=== PATIENT | female | born 1980 | race Caucasian/White ===

== ENCOUNTER 2019-03-11 06:26 | Observation (INO) ==
--- NOTE | 2019-03-04 15:48 | PAT Medication Instructions ---
Medication Instructions Date of Service March 04, 2019 Home Medications levothyroxine 100 mcg PO QAM levonorgestrel-ethinyl estrad [Aviane] 1 tab PO QAM ASK your surgeon for instructions levonorgestrel-ethinyl estrad [Aviane] 1 tab PO QAM Take morning of surgery With a small sip of water, OTHERWISE NOTHING TO EAT OR DRINK AFTER MIDNIGHT: levothyroxine 100 mcg PO QAM Other Notes If you have any questions please call us at [phone] or [phone] or [phone] or [phone]
--- NOTE | 2019-03-05 12:05 | Anesthesiology Consultation ---
Date of Service March 05, 2019 Assessment & Plan (1) Encounter for pre-operative examination: Check test AM DOS Chart Review Chart Review: Acceptable Risk for Surgery and Patient seen in Pre Admission Testing Teaching & Discussion Pre-Anesthesia Teaching/Discussion Notes: Instructed NPO after midnight before surgery,except medications with 15 cc of water. Medication instructions provided according to the PAT guidelines. History Surgery Operation Date: 03/11/19 07:30 Proposed Procedures p Bilateral Reduction Mammoplasty - Mary Shine MD Height/Weight Height: 5 ft 6 in Weight: 66.2 kg Allergies Allergy/AdvReac Type Severity Reaction Status Date / Time No Known Allergies Allergy Verified 02/25/19 13:23 Medications Home Medications Medication Instructions Recorded Confirmed Last Taken levothyroxine 100 mcg PO QAM 08/25/18 02/25/19 01/30/19 Past Medical History Medical History History of thyroid cancer S/P RADIATION THERAPY, SURGERY Hx of endometriosis Hypothyroidism Migraine Exercise / Class Metabolic Activity II 4-5 Yardwork/Stairs/Walk up hill Past Family History Family History Mother Family history of diabetes mellitus Grandmother (Maternal) Family hx of colon cancer Past Surgical History Surgical History H/O exploratory laparotomy Robotic diagnostic ex-lap: 10/03/18: Grade view 2, MAC#3, ET 7.5 at [facility] History of arthroscopy RT KNEE - MENISCUS REPAIR History of colonoscopy History of loop electrical excision procedure (LEEP) History of thyroidectomy TOTAL THYROIDECTOMY History of tooth extraction Past Anesthesia History No Family Hx of Anesthesia Complications and Other Patient states her told her she was "slow to wake" with most recent caruso rgery (diagnostic lap at [facility] 09/2018) but she states she was not aware of this/no provider told her this. History of PONV History of PONV Social History Smoking Status: Former smoker tobacco type: cigarettes Do You Dip or Chew Tobacco: No Smoking End Date: QUIT 2014 Hx Alcohol Use: Yes Alcohol type: hard liquor alcohol intake frequency: holidays/special occasions only Hx Substance Use: No substance use type: does not use Review of Systems Patient denies chest pain, shortness of breath, dyspnea on exertion, reflux, cough, wheezing, palpitations. Physical Exam Vital Signs VITALS BP 146/89 P 75 TEMP 98.5 SP02 95%RA RESP 18 Patient advised to followup with PCP regarding elevated BP. PHYSICAL Full neck and c-spine range of motion. Full TMJ range of motion. TMD 2.5 finger breaths Mallampati Score 2 Dentition: intact Lungs: clear throughout to auscultation Cardiac: regular rate and rhythm, I/ systolic murmur Spine: normal Carotid arteries: negative bruit Extremities: no edema Testing Laboratory Results 03/11/19 07:30 03/11/19 07:30 PT Cancelled 03/11/19 07:30 INR Cancelled 03/11/19 07:30 APTT Cancelled 03/11/19 07:30 03/05/19 WBC 7.76 H/H 13.6/38.9 PLATELETS 254 SODIUM 138 POTASSIUM 3.6 CHLORIDE 104 CO2 29 BUN 11 CREATININE 0.83 GLUCOSE 77 PT 10.6 PTT 29.0 INR 1.0
[2019-03-05 12:49] LABS: Basophils # (auto) 0.04 K/uL (0-0.2); Basophils % (auto) 0.5 %; Eosinophils # (auto) 0.11 K/uL (0-0.5); Eosinophils % (auto) 1.4 %; Hematocrit (blood only) 38.9 % (37-47); Hemoglobin 13.6 g/dL (12.0-16.0); Immature Granulocytes # (auto) 0.01 K/uL (0.00-0.02); Immature Granulocytes % (auto) 0.1 %; Lymphocytes # (auto) 1.82 K/uL (1.2-3.4); Lymphocytes % (auto) 23.5 %; Mean Platelet Volume 10.8 fL (7.4-10.4); Monocytes # (auto) 0.46 K/uL (0.11-0.59); Monocytes % (auto) 5.9 %; Neutrophils # (auto) 5.32 K/uL (1.4-6.5); Neutrophils % (auto) 68.6 %; Platelet Count 254 K/uL (130-400); RDW Coefficient of Variation 12.7 % (11.5-14.5); RDW Standard Deviation 37.3 fL (36.4-46.3); White Blood Count 7.76 K/uL (4.8-10.8)
[2019-03-05 13:05] LABS: Partial Thromboplastin Ratio 1.1; Prothrombin Time 10.6 Seconds (9.0-12.0)
[2019-03-05 14:33] LABS: BUN Creatinine Ratio 13.1 (10-20); Calcium 8.8 mg/dl (8.5-10.1); Creatinine Clr Calc Pharmacy 86.9 ml/min; Est GFR (African American) 104.4; Est GFR (Non-African American) 90.1; Potassium 3.6 mmol/L (3.5-5.1)
[~2019-03-11 06:26] MED LIST: CEFAZOLIN 2000MG 2,000 MG/15 ML SYR IV SCH; LR 15ML/HR IV SCH
--- NOTE | 2019-03-11 06:48 | History & Physical Bridge Note ---
Date of Service March 11, 2019 History & Physical Bridge Note I have examined the patient, reviewed the History & Physical and in the interval since the performance of the History & Physical I have noted the following changes of clinical significance: no changes noted
[2019-03-11] MEDS ORDERED: ONDANSETRON INJ 2 MG/ML 2 ML VIAL IV PRN ×2 (06:53→12:35)
[2019-03-11] MEDS ORDERED: fentaNYL citrate 100 MCG/2 ML VIAL IV PRN (06:53)
[2019-03-11] MEDS ORDERED: ATROPINE SULFATE 0.1 MG/ML 10ML SYR IV PRN (06:53)
[2019-03-11] MEDS ORDERED: ePHEDrine sulfate 50 MG/ML AMP IV PRN (06:53)
[2019-03-11] MEDS ORDERED: HYDROmorphone INJ 1 MG/ML SYRINGE IV PRN (06:53)
[2019-03-11] MEDS ORDERED: HYDROmorphone INJ 2 MG/ML SYR/VIAL ONE (06:57)
[2019-03-11] MEDS ORDERED: MIDAZOLAM HCL 1 MG/ML 2ML VIAL ONE (06:57)
[2019-03-11] MEDS ORDERED: fentaNYL citrate 100 MCG/2 ML VIAL ONE (06:57)
[2019-03-11] MEDS ORDERED: SCOPOLAMINE 1.5 MG TDSY ONE (06:59)
[2019-03-11] MEDS ORDERED: LIDOCAINE HCL 1% 20 ML VIAL ONE (07:01)
[2019-03-11] MEDS ORDERED: BUPIVACAINE 0.25% 30 ML VIAL ONE (07:01)
[2019-03-11] MEDS ORDERED: LIDOCAINE/EPINEPHRINE 1% 20 ML VIAL ONE (07:01)
[2019-03-11] MEDS ORDERED: EpINEphrine HCL INJ 1 MG/ML 1ML SYRINGE ONE (07:02)
[2019-03-11] MEDS ORDERED: LIDOCAINE 2% JELLY 5 ML TUBE ONE (07:03)
[2019-03-11] MEDS ORDERED: SCOPOLAMINE 1.5 MG TDSY TD ONE (07:08)
[2019-03-11] MEDS ORDERED: NEOSTIGMINE METHYLSULFATE 5 MG/5 ML SYR ONE (07:44)
[2019-03-11] MEDS ORDERED: METOCLOPRAMIDE HCL INJ 5 MG/ML 2 ML VIAL ONE (07:44)
[2019-03-11] MEDS ORDERED: ROCURONIUM BROMIDE 10 MG/ML 5 ML VIAL ONE (07:44)
[2019-03-11] MEDS ORDERED: ONDANSETRON INJ 2 MG/ML 2 ML VIAL ONE (07:44)
[2019-03-11] MEDS ORDERED: LIDOCAINE HCL 2% 2 ML VIAL/AMP(20MG/ML) INFIL ONE (07:44)
[2019-03-11] MEDS ORDERED: PROPOFOL IV EMULSION 10 MG/ML 20 ML VIAL IV ONE (07:44)
[2019-03-11] MEDS ORDERED: GLYCOPYRROLATE 0.2 MG/ML VIAL ONE (07:44)
--- NOTE | 2019-03-11 11:13 | Post Operative Brief Note ---
Immediate Post Op Note v1 Date of Surgery March 11, 2019 Pre & Post Diagnosis Operation Date: 03/11/19 07:30 Pre-Op Diagnosis: Symptomatic Macromastia Post-Op Diagnosis: Symptomatic Macromastia Procedure Operation Date: 03/11/19 07:30 Actual Procedures p Bilateral Reduction Mammoplasty(Bilateral) - Mary hSine MD Surgeon Mary Shine MD Lead Machinist Vanna Zuniga PA-C, Esther Mendoza PA-C Estimated Blood Loss 50 Findings Consistent with Post-Op Diagnosis Drains Momo-Guerrero Drain (Left and Right breast)
--- NOTE | 2019-03-11 11:41 | Operative Report ---
Post Operative Report Pre & Post Diagnosis Operation Date: 03/11/19 07:30 Pre-Op Diagnosis: Symptomatic Macromastia Post-Op Diagnosis: Symptomatic Macromastia Procedure Operation Date: 03/11/19 07:30 Actual Procedures p Bilateral Reduction Mammoplasty(Bilateral) - Mary Shine MD Surgeon Mary Sihne MD Examining Officer Vanna Zuniga PA-C, Esther Mendoza PA-C Estimated Blood Loss 50 Findings Consistent with Post-Op Diagnosis Specimens Breast tissue left 440 g, right 472 g Drains ERIKA x2 Anesthesia Type General Complications none Description of Procedure The risks, benefits, and alternatives of the procedure were explained to the patient who agreed and signed consent. She was identified and marked in the preoperative holding area. She was brought to the operating room where she was positioned supine and placed under general anesthesia without incident. Surgical site was prepped and draped sterilely. A time-out procedure was performed. I began with the left side. Markings were reassessed and a 7 cm pedicle was marked. 1% lidocaine with epinephrine was used to anesthetize the planned incisions. A 42 mm cookie cutter was used to circumscribe the nipple-areolar complex. The previously marked 7 cm pedicle was incised using a 15 blade scalpel and deepithelized. I began with the medial dissection of the pedicle using electrocautery. Cautery was used to incise through dermis and breast parenchyma down to the chest wall, taking care not to undermine the pedicle during dissection. A similar procedure was undertaken on the lateral aspect of the pedicle again taking care not to undermine. Lastly, the pedicle was dissected out superiorly using electrocautery and this was carried down to the chest wall as well. I then began with excision of the medial breast tissue followed by lateral aspect of the breast tissue and surrounding keyhole incision. A 15 blade scalpel was used to make the inframammary fold incision and electrocautery was used to deepen the incision through dermis and breast parenchyma. Dissection was then carried superiorly to the level of the superior incision. Superior incision was then incised using a 15 blade scalpel and again dissected using electrocautery. This was undertaken laterally and then around the keyhole portion of the incision. Care was taken to leave some fat on the lateral pectoralis fascia in order to protect the T4 intercostal nerve. Hemostasis was achieved with electrocautery. The specimen was passed off in its entirety for weighing. Additional resection was undertaken from the superior flap in order to facilitate closure of the breast and to provide the best shape. The total resection weight of the left breast was 440 grams. The wound was irrigated with saline and hemostasis was achieved with electrocautery. 0.25% Marcaine plain was used to anesthetize the incisions as well as the pectoralis fascia. A 15 [place] drain was brought out through a separate stab incision. The nipple-areolar complex was brought into the keyhole using 2-0 Vicryl deep dermal suture. The wound was closed first in a lateral to mid breast direction and then medial to mid breast direction using 2-0 Vicryl deep dermal sutures. Vertical limb was also approximated using 2-0 Vicryl deep dermals and the nipple-areolar complex was inset using 2-0 Vicryl deep dermal sutures. Next, the superficial dermal layer was closed using 2-0 PDO running Quill suture along the inframammary fold and 3-0 PDS interrupted dermal sutures along the vertical limb and nipple- areolar complex. Lastly 3-0 Monocryl running subcuticular suture was placed. A similar procedure was undertaken on the right side with maximal excision weight of 472 grams. Breasts were symmetric and nipple-areolar complexes were viable bilaterally following wound closure. Dermabond Prineo was applied along the inframammary fold and vertical limb and Dermabond was placed around the nipple-areolar complex. Dry dressings and a surgical bra were placed. The patient was awakened and transferred to recovery room in satisfactory condition. Vanna Zuniga PA-C was present and scrubbed throughout the procedure and was instrumental in providing retraction during dissection of the pedicle and assisting in wound closure. I attest to the content of the Intraoperative Record and any orders documented therein. Any exceptions are noted below.
--- NOTE | 2019-03-11 11:59 | Anesthesiology Progress Note ---
Date of Service March 11, 2019 Anesthesia Post Procedure Vital Signs Vital Signs: Temp Pulse Resp BP Pulse Ox 03/11/19 11:50 97.9 F 90 16 142/84 H 99 03/11/19 11:40 97.9 F 83 19 137/80 100 03/11/19 11:30 97.9 F 88 11 L 148/88 H 100 03/11/19 11:24 97.9 F 84 14 156/90 H 99 03/11/19 06:45 98.6 F 71 18 170/95 H 98 Transfer of Care Handoff Completed per policy Notes Mental Status: alert / awake / arousable and participated in evaluation Patient Amnestic to Procedure: Yes Nausea / Vomiting: adequately controlled Pain: adequately controlled Airway Patency, RR, SpO2: stable & adequate BP & HR: stable & adequate Hydration State: stable & adequate Anesthetic Complications: no major complications apparent and Pt Satisfied with anesthetic care
[2019-03-11] MEDS ORDERED: OXAZEPAM 10 MG CAPSULE PO PRN (12:35)
[2019-03-11] MEDS ORDERED: OXYCODONE/ACETAMINOPHEN 5mg/325mg TAB PO PRN ×2 (12:35)
[2019-03-11] MEDS ORDERED: MoRPHine SULFATE 2 MG/ML CARP IV PRN (12:35)
[2019-03-11] MEDS ORDERED: ACETAMINOPHEN 325 MG TAB PO PRN (12:35)
[2019-03-11] MEDS ORDERED: PROMETHAZINE HCL 12.5 MG in SODIUM CHLORIDE 0.9% 50 ML IV PRN (12:35)
[2019-03-11] MEDS ORDERED: MoRPHine SULFATE 4 MG/ML 1 ML CARP\\VIAL IV PRN ×2 (12:35)
[2019-03-11] MEDS ORDERED: DiphenhydrAMINE HCL 50 MG/ML VIAL IV PRN (12:35)
[2019-03-11] MEDS: CHECK SCOPOLAMINE PATCH PLACEMENT SCH (15:34)
[2019-03-11] MEDS: CEFAZOLIN 2000MG 2,000 MG/15 ML SYR IV SCH (15:36)
[2019-03-11] MEDS: D5W AND 1/2NSS + 20MEQ KCL 20 MEQ/1,000 ML BAG IV SCH (18:16)
--- NOTE | 2019-03-11 19:11 | Surgery Progress Note ---
Date of Service March 11, 2019 Assessment & Plan (1) Macromastia: Doing well continued observation overnight with NAC checks Subjective s/p bilateral breast reduction reports some pain, tolerable oob to void Physical Exam Physical Exam: bilateral breasts without hematomas, NACs pink, viable, sensate bilaterally, good cap refill JPs serosanguinous Results & Data Vital Signs (Past 12 Hours) Vital Signs Temp Pulse Resp BP Pulse Ox 03/11/19 19:06 36.8 C 90 18 126/80 95 03/11/19 15:21 36.5 C 80 14 144/80 H 96 03/11/19 14:20 36.6 C 69 16 137/80 95 03/11/19 13:20 73 16 147/80 H 97 03/11/19 13:09 77 16 150/88 H 98 03/11/19 12:20 36.6 C 75 14 161/95 H 98 03/11/19 12:00 36.6 C 90 16 150/86 H 99 03/11/19 11:50 36.6 C 90 16 142/84 H 99 03/11/19 11:40 36.6 C 83 19 137/80 100 03/11/19 11:30 36.6 C 88 11 L 148/88 H 100 03/11/19 11:24 36.6 C 84 14 156/90 H 99
[2019-03-12] MEDS: CHECK SCOPOLAMINE PATCH PLACEMENT SCH ×2 (00:13→09:12)
[2019-03-12] MEDS: CEFAZOLIN 2000MG 2,000 MG/15 ML SYR IV SCH (00:13)
[2019-03-12] MEDS: D5W AND 1/2NSS + 20MEQ KCL 20 MEQ/1,000 ML BAG IV SCH (06:15)
[2019-03-12] MEDS ORDERED: LEVOTHYROXINE SODIUM 100 MCG TABLET PO SCH (06:30)
--- NOTE | 2019-03-12 08:19 | Surgery Progress Note ---
Date of Service March 12, 2019 Assessment & Plan (1) Macromastia: s/p bilateral breast reduction 1. doing well POD# 1. Drains removed. D/C home today and follow-up in office tomorrow Present on Admission?: Yes Subjective Patient resting comfortably. Reports minimal pain. Physical Exam Constitutional: WD/WN, vitals as above well developed and well nourished; no acute distress Skin: + incision (CDI, nipples viable, drains with minimal bloody and serous output) Results & Data Vital Signs (Past 12 Hours) Vital Signs Temp Pulse Resp BP Pulse Ox 03/12/19 07:09 36.6 C 79 16 129/75 96 03/12/19 02:20 36.7 C 72 14 128/78 97 03/11/19 23:07 37.0 C 83 16 125/79 97
[2019-03-12] MEDS ORDERED: MULTIVITAMIN TAB PO SCH (09:00)
--- NOTE | 2019-03-12 10:32 | Discharge Summary ---
Date of Service March 12, 2019 Admission HPI Per Admitting Provider see admission H&P Admission Exam Per Admitting Provider see admission H&P Principal Diagnosis symptomatic breast hypertrophy Discharge Exam Constitutional WD/WN, vitals as above well developed and well nourished; no acute distress Skin + incision (CDI, nipples viable, drains with minimal bloody and serous output) Discharge Data Allergies Allergy/AdvReac Type Severity Reaction Status Date / Time No Known Allergies Allergy Verified 03/11/19 06:43 Procedures Performed Operation Date: 03/11/19 07:30 Actual Procedures p Bilateral Reduction Mammoplasty(Bilateral) - Mary Shine MD Hospital Course (1) Macromastia: Patient presented to [facility] with history of symptomatic macromastia. She was taken to the OR and underwent bilateral breast reduction. There were no intraoperative complications. She was taken to recovery and transferred to med/surg for observation. On POD#1, she was feeling well. She was tolerating a r egular diet and ambulating. On exam, her vitals were stable. Her incisions were CDI and nipples viable. Her drains were removed. She was discharged home with instructions to follow-up in the office in one day. Total Time Total Time Spent Total Time Spent (In Minutes): 10 Total Time Includes: Examination of the Patient and Discharge Planning Discharge Plan Discharge Items Patient Disposition: Home - Self-Care Reason For Visit: Symptomatic Macromastia Discharge Diagnosis: s/p bilateral breast reduction Discharge Goals: Decrease discomfort Activity: As commented below Non-emergency contact: Surgeon Call non-emergency contact if: you have any medication questions, your pain is not controlled, you have a fever, your wound has increased redness and your wound has increased drainage Follow-up/Referrals: Zack Marion, [Primary Care Provider] - Diet: Regular Addtl Provider Instructions: ACTIVITY RECOMMENDATIONS: __Normal activities _x_No bending, lifting or straining __No driving __Driving allowed when you are off pain medications _x_Walking permitted __You should have help at home for ___ days DRESSINGS: __No dressings required _x_Keep dressings dry/in place until first office visit __Remove dressings ___ and leave dressings off __Apply ice ___ days __Remove dressings and reapply garment __Apply antibiotic ointment (Bacitracin, Neosporin, etc) to wounds 3-4 times/day for 10 days BATHING: _x_Keep dressings dry _x_Sponge bathing permitted __Showering permitted x__No swimming, hot tubs or soaking in a tub MEDICATIONS: Resume previous medications unless instructed otherwise by your surgeon. _x_Do not use aspirin, Motrin, Advil or Ibuprofen as these may promote bleeding. Please use Tylenol. _x_Prescription(s) provided: pain medication provided at your last office visit OTHER INSTRUCTIONS: __Record drain output 2-3 times per day SPECIAL CARE INSTRUCTIONS: * It is normal to have a mild fever after surgery. If your temperature is higher than 101.5 degrees F, please call the office at [phone]. * Constipation is a typical side effect of pain medication. An ywnz-fji-cwewees stool softener will help relieve this. * Leaking around surgical drains may occur and should not cause concern. Sometimes these drains become clogged. If this happens, remove the bulb and milk the clot out of the tube, then replace the bulb. * Drainage from wounds after liposuction is normal and should be expected. Garments will become soiled. You should protect furniture and bedding. This drainage should mostly subside within 2-3 days. Leave garments in place unless instructed to remove them. * If you have unusual drainage from a wound or are concerned you have an infection or have any questions or concerns, please call the office at [phone]. FOLLOW UP VISIT: If not already scheduled, please call the office, , when you return home after surgery to schedule an appointment to be seen in _1__ days. Prescriptions: Continued levothyroxine 100 mcg Tablet 100 mcg PO QAM RF: 0 Stand-Alone Forms: [facility] Discharge Orders: Discharge Order (Routine); Ordered 03/12/19 Ordered By: Vanna Zuniga Admission Data Admit Date/Time: 03/11/19 11:39 Attending Provider: Mary Shine Admit Provider: Mary Shine Primary Care Provider: Zack Marion Service: Surgical Services Other Pending Studies at Discharge: Yes Studies:: pathology
== END 2019-03-12 12:41 | disposition home or self-care (01) ==
LOC: ASU 06:26 → 3N 06:26